=== PATIENT | female | born 1970 | race Hispanic/Latino ===

== ENCOUNTER 2021-07-12 12:00 | Inpatient (IN) | payer BC ==
[~2021-07-12] VITALS: Ht 167.6 cm; Wt 102.5 kg
[2021-07-12 12:40] VITALS: BP 122/64
[2021-07-12 12:53] LABS: BASOPHILS % (AUTO) 0.8 % (0.0-5.0); EOSINOPHILS % (AUTO) 2.1 % (0.0-8.0); HEMATOCRIT 41.4 % (36-48); LYMPHOCYTES % (AUTO) 33.8 % (21.0-51.0); MEAN CORPUSCULAR HEMOGLOBIN 26.3 pg (27.0-33.0); MEAN CORPUSCULAR HGB CONC 31.2 g/dL (32.0-36.0); MEAN CORPUSCULAR VOLUME 84.3 fL (79-99); MONOCYTES % (AUTO) 9.4 % (3.0-13.0); NEUTROPHILS % (AUTO) 53.5 % (40.0-77.0); PLATELET COUNT (AUTO) 211 K/uL (130-400); RED BLOOD CELL COUNT(AUTO) 4.91 MIL/uL (4.00-5.50); RED CELL DISTRIBUTION WIDTH 13.2 % (11.0-15.5); WHITE BLOOD COUNT (AUTO) 5.2 K/uL (4.8-10.8)
[2021-07-12 13:01] LABS: APPEARANCE,URINE Clear (CLEAR); BILIRUBIN,URINE Negative (NEGATIVE); COLOR,URINE Yellow (YELLOW); GLUCOSE, URINE (UA) Negative (NEGATIVE); KETONES,URINE Negative (NEGATIVE); LEUKOCYTE ESTERASE ,URINE Negative (NEGATIVE); NITRATE,URINE Negative (NEGATIVE); OCCULT BLOOD,URINE Negative (NEGATIVE); PH,URINE 6.5 (5.0-8.0); PROTEIN,URINE Negative (NEGATIVE)
[2021-07-12 13:09] LABS: INR 0.93 (0.85-1.15); PROTHROMBIN TIME 10.1 SEC (9.6-11.6)
[2021-07-12 13:10] LABS: PARTIAL THROMBOPLASTIN TIME 26.7 SEC (26.3-35.5)
[2021-07-12 13:12] LABS: CREATININE 0.9 mg/dL (0.5-1.5); POTASSIUM 4.5 mmol/L (3.5-5.1)
[2021-07-12] MEDS ORDERED: SERT100T PO (13:47)
[2021-07-15] VITALS (27 sets, daily range): BP systolic 106–128; BP diastolic 50–70
[2021-07-15] MEDS ORDERED: LACTATED RINGERS 1000ML 1,000 ML IV ONE (08:19)
[2021-07-15] MEDS: CEFAZOLIN SODIUM 1 GM VIAL IVP ONE ×2 (09:04→13:30)
[2021-07-15] MEDS ORDERED: SUCCINYLCHOLINE 200MG/10ML SYR ONE (10:20)
[2021-07-15] MEDS ORDERED: MIDAZOLAM HCL 1 MG/ML 2ML VIAL ONE (10:20)
[2021-07-15] MEDS ORDERED: ROCURONIUM 10MG/1ML SYR 10 MG/ML ML ONE ×2 (10:20→13:59)
[2021-07-15] MEDS ORDERED: LIDOCAINE PF 100MG/5ML (2%) SYRINGE 5ML ONE (10:20)
[2021-07-15] MEDS ORDERED: PROPOFOL 10 MG/ML 20ML VIAL IV ONE (10:20)
[2021-07-15] MEDS ORDERED: FENTANYL CITRATE PF 50 MCG/1 ML 2ML VIAL ONE ×2 (10:20→14:00)
[2021-07-15] MEDS ORDERED: DEXAMETHASONE SOD PHOSPHATE 4 MG/ML 1ML VIAL ONE (10:22)
[2021-07-15] MEDS ORDERED: ACETAMINOPHEN 500 MG TABLET ONE (10:39)
[2021-07-15] MEDS ORDERED: METOCLOPRAMIDE 10 MG/2 ML VIAL ONE (10:39)
[2021-07-15] MEDS ORDERED: CELECOXIB 200 MG CAP ONE (10:40)
[2021-07-15] MEDS ORDERED: KETOROLAC 15MG/ML VIAL (15MG/ML) ONE (10:40)
[2021-07-15] MEDS ORDERED: TRANEXAMIC ACID 1000MG/10ML ONE ×2 (13:27→16:24)
[2021-07-15] MEDS ORDERED: CEFAZOLIN SODIUM 1 GM VIAL ONE (13:27)
[2021-07-15] MEDS ORDERED: KCL 20 MEQ ERTAB PO PRN (16:00)
[2021-07-15] MEDS: ACETAMINOPHEN 500 MG TABLET PO SCH (16:00)
[2021-07-15] MEDS ORDERED: ONDANSETRON 4MG INJ IVP PRN (16:00)
[2021-07-15] MEDS ORDERED: POTASSIUM CHLORIDE 20MEQ/100ML 100 ML IV PRN (16:00)
[2021-07-15] MEDS ORDERED: DiphenhydrAMINE HCL 50 MG/ML VIAL IVP PRN (16:00)
[2021-07-15] MEDS ORDERED: FERROUS FUMARATE 324 MG TABLET PO PRN (16:00)
[2021-07-15] MEDS ORDERED: LIDOCAINE HCL-MPF 1% 2ML VIAL IV PRN (16:00)
[2021-07-15] MEDS ORDERED: CALCIUM CARB 500MG PO PRN (16:00)
[2021-07-15] MEDS ORDERED: POTASSIUM CHLORIDE 10% ELIXIR 20 MEQ/15 ML UDCUP PO PRN (16:00)
[2021-07-15] MEDS ORDERED: TRAMADOL HCL 50 MG TABLET PO PRN (16:00)
[2021-07-15] MEDS ORDERED: OXYCODONE HCL 5 MG TAB PO PRN ×2 (16:00)
[2021-07-15] MEDS: 0.9%NACL 1000ML 1,000 ML IV SCH (19:45)
[2021-07-15] MEDS: ASPIRIN 81 MG EC TAB PO SCH (22:12)
[2021-07-15] MEDS: CEFAZOLIN SODIUM 1 GM VIAL IVP SCH (22:12)
[2021-07-15] MEDS: PREGABALIN 25 MG CAP PO SCH (22:13)
[2021-07-15] MEDS: CELECOXIB 200 MG CAP PO SCH (22:13)
[2021-07-15] MEDS: FAMOTIDINE 20MG TAB PO SCH (22:13)
[2021-07-16] MEDS: ACETAMINOPHEN 500 MG TABLET PO SCH ×4 (00:39→23:54)
[2021-07-16] MEDS: 0.9%NACL 1000ML 1,000 ML IV SCH ×2 (02:00→12:00)
[2021-07-16 04:10] VITALS: BP 116/56
[2021-07-16 04:16] LABS: HEMATOCRIT 33.4 % (36-48); MEAN CORPUSCULAR HEMOGLOBIN 26.7 pg (27.0-33.0); MEAN CORPUSCULAR HGB CONC 31.7 g/dL (32.0-36.0); MEAN CORPUSCULAR VOLUME 84.1 fL (79-99); RED BLOOD CELL COUNT(AUTO) 3.97 MIL/uL (4.00-5.50); RED CELL DISTRIBUTION WIDTH 13.3 % (11.0-15.5); WHITE BLOOD COUNT (AUTO) 7.6 K/uL (4.8-10.8)
[2021-07-16 04:27] LABS: CREATININE 0.8 mg/dL (0.5-1.5); POTASSIUM 3.7 mmol/L (3.5-5.1)
[2021-07-16] MEDS: CEFAZOLIN SODIUM 1 GM VIAL IVP SCH (06:14)
[2021-07-16 08:16] VITALS: BP 99/59
[2021-07-16] MEDS: POLYETHYLENE GLYCOL 3350 17 GM POWD.PACK PO SCH (09:00)
[2021-07-16] MEDS: PREGABALIN 25 MG CAP PO SCH ×2 (10:36→21:25)
[2021-07-16] MEDS: ASPIRIN 81 MG EC TAB PO SCH ×2 (10:37→21:25)
[2021-07-16] MEDS: CELECOXIB 200 MG CAP PO SCH ×2 (10:37→21:25)
[2021-07-16] MEDS: FAMOTIDINE 20MG TAB PO SCH ×2 (10:37→21:25)
[2021-07-16] MEDS ORDERED: SERTRALINE HCL 50 MG TABLET ONE (10:40)
[2021-07-16] MEDS: SERTRALINE HCL 50 MG TABLET PO SCH (10:40)
[2021-07-16 10:50] VITALS: BP 110/60
[2021-07-16 16:17] VITALS: BP 105/55
[2021-07-16 20:46] VITALS: BP 102/59
[2021-07-16 23:30] VITALS: BP 111/56
[2021-07-17] MEDS: KETOROLAC 15MG/ML VIAL (15MG/ML) IV PRN ×3 (00:50→13:53)
[2021-07-17 04:33] VITALS: BP 120/58
[2021-07-17 08:00] VITALS: BP 118/67
[2021-07-17] MEDS: ACETAMINOPHEN 500 MG TABLET PO SCH ×2 (08:37→17:03)
[2021-07-17] MEDS: FAMOTIDINE 20MG TAB PO SCH (08:37)
[2021-07-17] MEDS: ASPIRIN 81 MG EC TAB PO SCH (08:37)
[2021-07-17] MEDS: CELECOXIB 200 MG CAP PO SCH (08:37)
[2021-07-17] MEDS: PREGABALIN 25 MG CAP PO SCH (08:37)
[2021-07-17] MEDS: POLYETHYLENE GLYCOL 3350 17 GM POWD.PACK PO SCH (09:00)
[2021-07-17] MEDS: SERTRALINE HCL 50 MG TABLET PO SCH (11:53)
[2021-07-17 12:00] VITALS: BP_SYST 114; BP_DIAS 63; BP_DIAS 71
[2021-07-17 16:00] VITALS: BP 110/59
[2021-07-17] MEDS ORDERED: APIX2.5T PO (16:20)
[2021-07-17] MEDS ORDERED: HYDR-4060 PO (16:20)
[2021-07-18] MEDS ORDERED: BISACODYL 10 MG SUPP.RECT RC PRN (16:00)
== END 2021-07-17 18:30 | disposition home health service (06) | DRG 469 ==
LOC: DAHIP 07-15 07:35 → 4AH 07-15 17:54
PROVIDERS: ADMIT Orthopaedic Surgery; ATTEND Orthopaedic Surgery
PROC: 0SRC0J9 Replacement of Right Knee Joint with Synthetic Substitute, Cemented, Open Approach (ICD-10-PCS; principal; 2021-07-15 11:00)
PROC: 3E0T3BZ Introduction of Anesthetic Agent into Peripheral Nerves and Plexi, Percutaneous Approach (ICD-10-PCS; 2021-07-15 11:00)
DX: M17.11 Unilateral primary osteoarthritis, right knee (principal); U07.1 COVID-19; D64.9 Anemia, unspecified; Z82.49 Family history of ischemic heart disease and other diseases of the circulatory system; Z83.3 Family history of diabetes mellitus; Z82.61 Family history of arthritis
CPT/HCPCS: 36415; 80048; 81003; 85025; 85027; 85610; 85730; 87088; 87635; 87641; 97039; G0378; J0330; J0690; J1100; J1885; J2001; J2250; J2704; J2765; J3010; J3490; J7030; J7120